=== PATIENT | female | born 1990 ===

== ENCOUNTER 2025-01-04 22:57 | Emergency (ER) | payer MEDICAID, SELFPAY ==
--- NOTE | 2025-01-04 | ECG_ITS ---
Test Reason : CHEST PAIN Blood Pressure : */* mmHG Vent. Rate : 82 BPM Atrial Rate : 82 BPM P-R Int : 154 ms QRS Dur : 70 ms QT Int : 392 ms P-R-T Axes : 36 -2 4 degrees QTcB Int : 457 ms Normal sinus rhythm Minimal voltage criteria for LVH, may be normal variant ( R in aVL ) Borderline ECG No previous ECGs available Referred By: Generic ED Physician Electronically Signed By: RORO WILLIAMSON
--- NOTE | ~2025-01-04 | XR_ITS ---
CLINICAL HISTORY: pain 1 view chest x-ray. Comparison: None provided. Findings: No consolidation, pneumothorax, or effusion. Heart size normal. Impression: 1. No radiographic evidence for an acute cardiopulmonary process. No focal pulmonary consolidation. This document has been electronically signed by: Peter Pickett MD on 01/05/2025 01:16:54
--- NOTE | ~2025-01-04 | CT_ITS ---
CLINICAL HISTORY: sob, pain CT angiography chest using contrast. 3-D postprocessing Comparison: CR - XR CHEST 1V - 01/05/25 00:14 EST Findings: Evaluation of the pulmonary arterial system is mildly limited by suboptimal contrast opacification No thoracic aorta aneurysm. Heart size is at the upper limits of normal given the low lung volumes. There is pulmonary hypoinflation with bronchovascular crowding. No focal pulmonary consolidation, pneumothorax, or pleural effusion. Visualized upper abdomen unremarkable. No acute fractures. Impression: 1. Mildly limited examination related to suboptimal contrast opacification of the pulmonary arterial system. No clear pulmonary embolism appreciated. 2. Pulmonary hypoinflation with bronchovascular crowding. No focal pulmonary consolidation, pneumothorax, or pleural effusion. This document has been electronically signed by: Peter Pickett MD on 01/05/2025 03:24:28
[2025-01-04 23:05] VITALS: BP 143/66; PULSE 99; RESP 14; TEMP 36.8; O2SAT 99; BMI 40.3
[2025-01-04 23:32] LABS: Hematocrit 35.3 % (37.0-47.0); Hemoglobin 12.0 g/dl (12.0-16.0); Imm Gran Abs Auto 0.02 X10*3/uL (0.00-0.03); Imm Gran Pct Auto 0.3 % (0.0-0.4); Lymphocytes Absolute Auto 2.2 X10*3/uL (1.2-4.9); MANUAL DIFF FLAG NO; Mean Corpuscular HGB Conc 34.0 g/dl (31.0-35.0); Mean Corpuscular Hemoglobin 28.1 pg (27.0-33.0); Mean Corpuscular Volume 82.7 fL (80.0-98.0); NRBC Abs Auto 0.000 X10*3/uL (0.0-0.012); NRBC Pct Auto 0.0 /100WBC (0.0-0.2); Platelet Count 237 X10*3/uL (160-400); Red Blood Count 4.27 X10*6/uL (4.20-5.50); White Blood Count 7.2 X10*3/uL (4.8-10.8)
[2025-01-04 23:47] LABS: Alanine Aminotransferase 20 U/L (0-31); Albumin Level 4.0 g/dL (3.5-5.0); Alkaline Phosphatase 92 U/L (39-117); Anion Gap 11 (12-20); Aspartate Amino Transferase 26 U/L (5-31); Blood Urea Nitrogen 11 mg/dL (9-16); Calcium 9.0 mg/dL (8.4-10.2); Carbon Dioxide 24 mmol/L (22-29); Chloride 110 mmol/L (96-108); Creatinine Clr Calc Pharmacy 107.3; Estimated Glomerular Filt Rate > 60; Potassium 3.5 mmol/L (3.3-5.1); Sodium 141 mmol/L (135-145); Total Protein 7.7 g/dL (6.5-8.0)
[2025-01-04 23:54] LABS: Troponin-I High Sensitivity 9.8 ng/L (<3.5-17.0)
--- NOTE | 2025-01-05 00:01 | ED_ITS ---
HPI - Chest Pain General Chief Complaint: Chest Pain Stated Complaint: Fever Body Aches Time Seen by Provider: 01/04/25 23:31 Source: patient Limitations: no limitations History of Present Illness ED Provider: Katelynn Manley PA-C HPI narrative: 34-year-old female with a history of morbid obesity, presents with chest pain x1 day. Pain over left anterior chest, that has pleuritic, worse with inspiration, also exacerbated with palpation of chest wall. The pain radiates to left upper extremity at times. Patient denies recent cough or cold symptoms, diaphoresis, nausea vomiting. Denies new heavy lifting, repetitive activity, or trauma, that preceded her symptoms. Patient also complains of ongoing dyspnea with the exertion for ?years?. Patient states she does develop pedal edema after being on her feet throughout the day, it is bilateral. Denies use of OCs, recent travel, recent surgery, unilateral calf pain or swelling. Related Data Previous Rx's ?Medication ?Instructions ?Recorded ketorolac 10 mg tablet 10 mg PO Q6H PRN pain #20 ta bs 01/05/25 Allergies Allergy/AdvReac Type Severity Reaction Status Date / Time No Known Allergies Allergy Verified 01/04/25 23:08 Review of Systems 2 Review of Systems: Yes all other systems are reviewed and are negative Constitutional: Constitutional: Denies fatigue and Denies fever(s) Cardiovascular: Cardiovascular: Reports chest pain, Denies leg edema, Denies palpitations, Denies dyspnea and Reports dyspnea on exertion Respiratory: Respiratory: Denies cough, Denies dyspnea, Reports dyspnea on exertion and Denies wheezing Gastrointestinal: Gastrointestinal: Denies abdominal pain, Denies nausea and Denies vomiting Endocrine: Endocrine: Denies fatigue and Denies palpitations Allergic/Immunologic: Allergic/Immunologic: Denies wheezing [facility] Past Medical History Attestation statement: The following information was validated with the patient. Physical Exam 2 Vital Signs: Vital Signs: Last Vital Signs Temp 97.9 F 01/05/25 03:50 Pulse 77 01/05/25 03:50 Resp 15 01/05/25 03:50 BP 113/75 01/05/25 03:50 Pulse Ox 99 01/05/25 03:50 O2 Del Method Room Air 01/05/25 03:50 BMI result Body Mass Index 40.3 Const: Other: Alert well-appearing Orientation/consciousness: patient oriented x3 Chest: Other: Pain elicited left anterior chest wall with palpation no deformity noted Resp: Other: Nonlabored respirations Cardio: Other: Normal peripheral perfusion, trace edema Skin: Other: Warm dry no rash Neuro: General: patient oriented x3, gait normal, no focal motor deficits and CN's II-XI intact bilaterally Psych: Other: Cooperative Medications Administered Discontinued Medications Generic Name Dose Route Start Last Admin Trade Name Laura PRN Reason Stop Dose Admin Iohexol 100 ml 01/05/25 01:44 01/05/25 01:45 Iohexol 350 Mg/Ml 100 Ml Infus..Btl IV 01/05/25 01:45 70 ml ONCE ONE Administration Ketorolac Tromethamine 15 mg 01/05/25 00:52 01/05/25 00:56 Ketorolac Tromethamine 15 Mg/Ml Vial IVPUSH 01/05/25 00:53 15 mg ONCE ONE Administration Medical Decision Making Medical Decision Making [facility] Narrative: 34-year-old female with a history of morbid obesity, presents with chest pain x1 day. Pain over left anterior chest, that has pleuritic, worse with inspiration, also exacerbated with palpation of chest wall. The pain radiates to left upper extremity at times. Patient denies recent cough or cold symptoms, diaphoresis, nausea vomiting. Denies new heavy lifting, repetitive activity, or trauma, that preceded her symptoms. Patient also complains of ongoing dyspnea with the exertion for ?years?. Denies use of OCs, recent travel, recent surgery, unilateral calf pain or swelling. Problem: Obesity History: Per patient I have considered the following differential diagnoses: ACS, new heart failure, PE, costochondritis, viral syndrome, pneumonia, chest wall strain Plan: ACS was considered, screening labs including cardiac enzyme and EKG with chest x-ray obtained. To note, the patient does not have any risk factors for coronary artery disease other than obesity. Thought about new heart failure, she has been having ongoing dyspnea with exertion, there is evidence of LVH per EKG, there is a tall R-wave in AVR, she could be developing heart failure, she also complains of pedal edema that develops after being on her feet throughout the day. Thought about costochondritis, there is some reproducibility of the discomfort, however she has not had concurrent viral syndrome. Giving Toradol for her chest wall pain. Also less likely to be pneumonia, she has not had any cough cold symptoms or fever. Lastly, I am considering PE, the patient is obese, she has no other no risk factors for PE, she was tachycardic on arrival, adding on a dimer. I have independently reviewed the following tests: Labs: No leukocytosis, not anemic, no electrolyte abnormality, not , troponin 9.8, dimer, 243 EKG: Normal sinus rhythm, potential criteria for LVH, no ischemic changes no ectopy QTC 457, rate of 82 Chest x-ray:Findings: No consolidation, pneumothorax, or effusion. Heart size normal. Impression: 1. No radiographic evidence for an acute cardiopulmonary process. No focal pulmonary consolidation. CT angio chest:Findings: Evaluation of the pulmonary arterial system is mildly limited by suboptimal contrast opacification No thoracic aorta aneurysm. Heart size is at the upper limits of normal given the low lung volumes. There is pulmonary hypoinflation with bronchovascular crowding. No focal pulmonary consolidation, pneumothorax, or pleural effusion. Visualized upper abdomen unremarkable. No acute fractures. Impression: 1. Mildly limited examination related to suboptimal contrast opacification of the pulmonary arterial system. No clear pulmonary embolism appreciated. 2. Pulmonary hypoinflation with bronchovascular crowding. No focal pulmonary consolidation, pneumothorax, or pleural effusion. Differential Diagnosis Differential Diagnoses: The differential diagnosis associated with the presentation includes See [facility] Admission/Observation Consideration of admission/observation: Escalation of care including admission/observation considered Not applicable Lab Data [facility] Lab Attestation statement: I reviewed the patient's lab results. 01/04/25 23:25 01/04/25 23:25 Labs: Lab Results 01/04/25 01/05/25 Range/Units 23:25 00:06 WBC 7.2 (4.8-10.8) X10*3/uL RBC 4.27 (4.20-5.50) X10*6/uL Hgb 12.0 (12.0-16.0) g/dl Hct 35.3 L (37.0-47.0) % MCV 82.7 (80.0-98.0) fL MCH 28.1 (27.0-33.0) pg MCHC 34.0 (31.0-35.0) g/dl RDW 12.7 (11.0-16.0) % Plt Count 237 (160-400) X10*3/uL MPV 9.9 (9.4-12.3) fL Immature Gran % (Auto) 0.3 (0.0-0.4) % Neut % (Auto) 59.5 (45-73) % Lymph % (Auto) 30.0 (20-40) % [place] % (Auto) 7.9 (2-11) % Eos % (Auto) 1.9 (0-4) % Baso % (Auto) 0.4 (0-2) % Lymph # (Auto) 2.2 (1.2-4.9) X10*3/uL [place] # (Auto) 0.6 (0.1-1.2) X10*3/uL Eos # (Auto) 0.1 (0.0-0.4) X10*3/uL Baso # (Auto) 0.0 (0.0-0.2) X10*3/uL Abs Immat Gran (auto) 0.02 (0.00-0.03) X10*3/uL Absolute Neuts (auto) 4.3 (2.0-8.3) x10*3/uL Absolute Nucleated RBC 0.000 (0.0-0.012) X10*3/uL Nucleated RBC % (auto) 0.0 (0.0-0.2) /100WBC D-Dimer High Sensitivty 243 NG/ML Sodium 141 (135-145) mmol/L Potassium 3.5 (3.3-5.1) mmol/L Chloride 110 H (96-108) mmol/L Carbon Dioxide 24 (22-29) mmol/L Anion Gap 11 L (12-20) BUN 11 (9-16) mg/dL Creatinine 0.74 (0.5-1.4) mg/dL Estim Creat Clear Calc 107.3 Estimated GFR > 60 Random Glucose 93 (60-115) mg/dL Calcium 9.0 (8.4-10.2) mg/dL Total Bilirubin 0.3 (0.0-1.0) mg/dL AST 26 (5-31) U/L ALT 20 (0-31) U/L Alkaline Phosphatase 92 (39-117) U/L Troponin I High Sens 9.8 (<3.5-17.0) ng/L Total Protein 7.7 (6.5-8.0) g/dL Albumin 4.0 (3.5-5.0) g/dL Beta HCG, Quant < 2 mIU/mL Influenza Type A (PCR) NEGATIVE (Negative) Influenza Type B (PCR) NEGATIVE (Negative) RSV RNA Qual (PCR) NEGATIVE (Negative) SARS-CoV-2 RNA (RT-PCR) NEGATIVE (Negative) Independent Interpretation I performed an independent interpretation of an: EKG Radiology Impression Discussion of test interpretation with radiology: I have reviewed the radiologist's reading. Discharge Plan Discharge Clinical Impression: Chest wall pain Patient Disposition: Home, Self-Care Instructions: Chest Wall Pain (ED) Additional Instructions: Your symptoms and exam are most consistent with chest wall pain. Use the ketorolac as needed for pain, take the medication with food. All of your screening labs including a cardiac enzymes were within normal limits. There were no concerning changes on the EKG. The chest x-ray was clear. The CT scan of your chest did not reveal a clot in your lungs. Given your ongoing shortness of breath with the exertion, you need to follow up with primary care to have a formal ultrasound of your heart called an ECHO. Prescriptions: New ketorolac 10 mg tablet 10 mg PO Q6H PRN (Reason: pain) Qty: 20 0RF Rx Instructions: maximum total duration of 5 days from all oral, intranasal, or parenteral formulations, patient had an IV dose of Toradol here in the emergency room Stand Alone Forms: Work/School Release Print Language: Italian
--- OUTSIDE RECORDS SUMMARY | 2025-01-05 00:04 | XMS_ITS | Encounter Summary ---
Author Organization [facility] Address [address] [place] [address] Care Team Providers Care Financial Services Specialist Name Role Phone Thao Otto Primary Care Provider [phone] Reason for Visit * Reason Onset Date Comments Other 05/11/2023 Encounter Details Date Type Department Care Team ([facility] st Contact Info) Description 05/11/2023 Telephone [facility] [address] [place] [address] Shantanu Ardon MD [address] [place] [address] Other Social History Tobacco Use Types Packs/Day Years Used Date Smoking Tobacco: Never Smokeless Tobacco: Never Alcohol Use Standard Drinks/Week Comments No 0 (1 standard drink = 0.6 oz pur e alcohol) Social Connection and Isolation Panel Answer Date Recorded Frequency of Communication with Friends and Fami ly Not on file 03/23/2021 Frequency of Social Gatherings with Friends and Family Not on file 03/23/2021 How often do you attend adventism or cheondoism serv ices? Never 03/23/2021 Do you belong to any clubs o r organizations such as adventism groups, unions, fraternal or athletic groups, or school groups? No 03/23/2021 How often do you attend meet ings of the clubs or organizations you belong to? Never 03/23/2021 Marital Status Not on file 03/23/2021 Overall Financial Resource Strain (CARDIA) Answe r Date Recorded How hard is it for you to pa y for the very basics like food, housing, medical care, and heating? Not very hard 03/23/2021 PHQ-2 Answer Date Recorded PHQ-2 Total Score 0 05/05/2023 Hunger Vital Sign Answer Date Recorded Within the past 12 months, y ou worried that your food would run out before you got the money to buy more. Never true 03/23/19 22 Within the past 12 months, t he food you bought just didn't last and you didn't have money to get more. Never true 03/23/2021 PRAPARE - Transportation Answer Date Re corded In the past 12 months, has l ack of transportation kept you from medical appointments or from getting medications? No 08/2021 In the past 12 months, has l ack of transportation kept you from meetings, work, or from getting things needed for daily living? No 03/23/2021 Housing Stability Answer Date Recorded Housing Stability I have a steady place to live 03/23/2021 Comments No Sex and Gender Information Value Date Recorded Sex Assigned at Female 01/02/2020 1:06 PM EST Legal Sex Female 1:37 PM EST Gender Identity Female 01/02/2020 1:06 PM EST Sexual Orientation Straight 01/02/2020 1: 06 PM EST documented as of this encounter Miscellaneous Notes * Telephone Encounter - Irina Burch - 05/11/2023 9:02 AM EDT Best Contact: Pt called in regarding abnormal bruising pt was seen for on the . Pt states the bruises came back and she's not sure what to do. Pt also is requesting results from recent labs. Requesting a call back documented in this encounter Plan of Treatment Upcoming Encounters Date Type Department Care Team (Latest Contact Info) Description 01/30/2025 11:15 AM EST Clinical Support Cancer Center at [address] [place] [address] [place] [address] Esteban Jacobs MD [address] [place] [address] [place] [phone] 01/30/2025 11:40 AM EST Office Visit Cancer Center at [facility] [address] [place] [address] Abigail Malik APRN [address] [place] [phone] Esteban Jacobs MD [address] [place] [address] 01/30/2025 11:45 AM EST Appointment [facility] [address] [place] [address] Esteban Jacobs MD [address] [place] [phone] 02/21/2025 8:30 AM EST Follow Up [address] [address] Thao Otto PA [address] [place] [phone] 03/08/2025 3:52 PM EST Hospital Encounter Perioperative Services EP [address] [place] [address] Amita Marie DO [address] [place] [phone] 03/08/2025 3:52 PM EST - 03/08/2025 5:52 PM EST Surgery Perioperative Services EP [address] [place] [address] Amita Marie DO [address] [place] [phone] Exam under anesthesia, hysteroscopic polypectomy, endometrial sampling, Mirena intrauterine device placement Scheduled Procedures Name Priority Associated Diagnoses Date/Ti me HYSTEROSCOPY, SURGICAL; W/ENDOMETRIAL BX &/OR POLYPECTOMY W/WO D&C Low Risk Abnormal uterine bleeding Uterine polyp Dysmenorrhea 03/08/2025 3:52 PM EST PELVIC EXAM UNDER ANESTHESIA Low Risk Abnormal uterine bleeding Uterine polyp Dysmenorrhea 03/08/2025 3:52 PM EST INSERTION, INTRAUTERINE DEVICE Low Risk Abnormal uterine bleeding Uterine polyp Dysmenorrhea 03/08/2025 3:52 PM EST documented as of this encounter Visit Diagnoses Not on filedocumented in this encounter Additional Health Concerns Assessment Noted Time PHQ-9 Depression Total Score: 0 05/05/19 11:27 AM EDT documented as of this encounter Care Teams Financial Services Specialist Relationship Specialty Start Date End Date Thao Otto PA [address] [place] [phone] PCP - General 05/17/24 documented as of this encounter
--- OUTSIDE RECORDS SUMMARY | 2025-01-05 00:04 | XMS_ITS | Encounter Summary ---
Author Organization [facility] Address [address] [place] [phone] Care Team Providers Care Dentist Attendant Name Role Phone Thao Otto Primary Care Provider [phone] Encounter Details Date Type Department Care Team (Late st Contact Info) Description 09/11/2024 Telephone [facility] at [facility] [address] [place] [address] Abigail Malik, SUPERVISOR [employer]IR [address] [place] [address] Social History Tobacco Use Types Packs/Day Years Used Date Smoking Tobacco: Never Smokeless Tobacco: Never Alcohol Use Standard Drinks/Week Comments Never 0 (1 standard drink = 0.6 oz pur e alcohol) Humiliation, Afraid, Rape, and Kick questionnair e Answer Date Recorded Within the last year, have y ou been afraid of your partner or ex-partner? No 05/17/2024 Within the last year, have y ou been humiliated or emotionally abused in other ways by your partner or ex-partner? No Within the last year, have y ou been kicked, hit, slapped, or otherwise physically hurt by your partner or ex-partner? No 05/17/2024 Within the last year, have y ou been raped or forced to have any kind of sexual activity by your partner or ex-partner? No 05/17/2024 Social Connection and Isolation Panel Answer Date Recorded In a typical week, how many times do you talk on the phone with family, friends, or neighbors? Three times a week 05/17/2024 How often do you get togethe r with friends or relatives? Three times a week 05/17/2024 How often do you attend chur ch or cheondoism services? Never 05/17/2024 Do you belong to any clubs o r organizations such as hoahaoism groups, unions, fraternal or athletic groups, or school groups? No 05/17/2024 How often do you attend meet ings of the clubs or organizations you belong to? Never 05/17/2024 Are you , , di vorced, , never , or living with a partner? 05/17/2024 Overall Financial Resource Strain (CARDIA) Answe r Date Recorded How hard is it for you to pa y for the very basics like food, housing, medical care, and heating? Not very hard 05/17/2024 PHQ-2 Answer Date Recorded PHQ-2 Total Score 2 08/16/2024 [facility] Occupat ional [facility] - Occupational Stress Questionnaire Answer Date Recorded Do you feel stress - tense, restless, nervous, or anxious, or unable to sleep at night because your mind is troubled all the time - these days? Only a little 05/17/2024 Exercise Vital Sign Answer Date Recorde d On average, how many days pe r week do you engage in moderate to strenuous exercise (like a brisk walk)? 5 days 05/17/2024 On average, how many minutes do you engage in exercise at this level? 150+ min 05/17/2024 Hunger Vital Sign Answer Date Recorded Within the past 12 months, y ou worried that your food would run out before you got the money to buy more. Never true 05/18/19 25 Within the past 12 months, t he food you bought just didn't last and you didn't have money to get more. Never true 05/17/2024 PRAPARE - Transportation Answer Date Re corded In the past 12 months, has l ack of transportation kept you from medical appointments or from getting medications? No 04/2024 In the past 12 months, has l ack of transportation kept you from meetings, work, or from getting things needed for daily living? No 05/17/2024 Housing Stability Answer Date Recorded What is your living situation today? I have a st [place] place to live 05/17/2024 Housing Stability Not on file 05/17/2024 Interpersonal Safety Answer Date Record ed Is there anyone in your life that is hurting or threatening you in anyway? 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 Not on file Not on file Not on file documented as of this encounter Miscellaneous Notes * Telephone Encounter - Aleida Palmer - 09/11/2024 11:13 AM EDT Pt called and would like to reschedule her Appt due to schedule conflict Pt can be reached at [phone] documented in this encounter Plan of Treatment Upcoming Encounters Date Type Department Care Team (Latest Contact Info) Description 01/30/2025 11:15 AM EST Clinical Support [place] [address] Esteban Jacobs MD [address] [place], [place] [phone] 01/30/2025 11:40 AM EST Office Visit Cancer Center at [address] [id number] Abigail Malik APRN [address] [place] [phone] Esteban Jacobs MD [address] [place] [phone] 01/30/2025 11:45 AM EST Appointment [facility] [address] [place], [place] [address] Esteban Jacobs MD [address] [facility] [place] [address] 02/21/2025 8:30 AM EST Follow Up [address] [address] Thao Otto PA [address] [place] [phone] 03/08/2025 3:52 PM EST Hospital Encounter Perioperative Services EP [address] [place] [address] Amita Marie, DO [address] [place] [phone] 03/08/2025 3:52 PM EST - 03/08/2025 5:52 PM EST Surgery Perioperative Services EP [address] [place] [address] Amita Marie, DO [address] [place] [phone] Exam under anesthesia, hysteroscopic polypectomy, endometrial sampling, Mirena intrauterine device placement Scheduled Procedures Name Priority Associated Diagnoses Date/Ti md HYSTEROSCOPY, SURGICAL; W/ENDOMETRIAL BX &/OR POLYPECTOMY W/WO [...] Time PHQ-9 Depression Total Score: 0 05/05/19 24 11:27 AM EDT documented as of this encounter Care Teams Dentist Attendant Relationship Specialty Start Date End Date Thao Otto PA [address] [place] [address] PCP - General 05/17/24 documented as of this encounter
--- OUTSIDE RECORDS SUMMARY | 2025-01-05 00:04 | XMS_ITS | Encounter Summary ---
Author Organization [facility] and [facility] Address [address] [place] [phone] Care Team Providers Care Comptometrist Name Role Phone Thao Otto Primary Care Provider [phone] Encounter Details Date Type Department Care Team (Late st Contact Info) Description 07/02/2016 Scanned Document [facility] at [address] [address] Mario Charlton MD [address] [phone] Social History Tobacco Use Types Packs/Day Years Used Date Smoking Tobacco: Never Smokeless Tobacco: Never Alcohol Use Standard Drinks/Week Comments No 0 (1 standard drink = 0.6 oz pur e alcohol) Comments No Sex and Gender Information Value Date Recorded Sex Assigned at Female 01/02/2020 1:06 PM EST Legal Sex Female 1:37 PM EST Gender Identity Female 01/02/2020 1:06 PM EST Sexual Orientation Straight 01/02/2020 1: 06 PM EST documented as of this encounter Plan of Treatment Upcoming Encounters Date Type Department Care Team (Latest Contact Info) Description 01/30/2025 11:15 AM EST Clinical Support Cancer Center at [address] [place], [place] [id number] Esteban Jacobs MD [address] [place] [address] [place] [phone] 01/30/2025 11:40 AM EST Office Visit [facility] Center at [facility] [address] [place] [address] Abigail Malik APRN [address] [place] [phone] Esteban Jacobs MD [address] [place] [phone] 01/30/2025 11:45 AM EST Appointment [facility] [address] [place] [address] Esteban Jacobs MD [address] [place] [phone] 02/21/2025 8:30 AM EST Follow Up [address] [address] Thao Otto PA [address] [place] [phone] 03/08/2025 3:52 PM EST Hospital Encounter Perioperative Services EP [address] [place] [address] Amita Marie DO [address] [place] [phone] 03/08/2025 3:52 PM EST - 03/08/2025 5:52 PM EST Surgery Perioperative Services EP [address] [place] [phone] Amita Marie DO [address] [place] [phone] Exam under anesthesia, hysteroscopic polypectomy, endometrial [...] filedocumented in this encounter Additional Health Concerns Infection Onset Date Last Indicated Resolved Time R/O Influenza 04/11/2019 04/11/2019 04/12/2019 12: 11 AM EST R/O COVID-19 11/15/2019 11/16/2019 11/16/2019 9:00 PM EDT COVID-19 12/24/2019 12/24/2019 01/03/2020 7:20 PM EST R/O Respiratory Virus 06/02/2021 06/02/20212021 1:52 AM EDT R/O COVID-19 06/02/2021 06/02/2021 06/02/2021 1:52 AM EDT COVID-19 06/02/2021 06/02/2021 06/12/2021 7:18 PM EDT R/O COVID-19 08/17/2021 08/17/2021 08/17/2021 1:38 AM EDT R/O COVID-19 08/20/2021 08/20/2021 08/20/2021 9:21 PM EDT R/O Respiratory Virus 12/12/2022 12/12/20222022 10:40 PM EDT R/O COVID-19 12/12/2022 12/12/2022 12/12/2022 10:4 0 PM EDT R/O Respiratory Virus 01/24/2023 01/24/20232022 7:19 AM EST R/O COVID-19 01/24/2023 01/24/2023 01/24/2023 7:19 AM EST RSV 01/24/2023 01/24/2023 01/27/2023 7:18 PM EST documented as of this encounter Care Teams Comptometrist Relationship Specialty Start Date End Date Thao Otto PA [address] [place] [phone] PCP - General 05/17/24 documented as of this encounter
--- OUTSIDE RECORDS SUMMARY | 2025-01-05 00:04 | XMS_ITS | Encounter Summary ---
Author Organization [facility] Address [address] [place] [address] Care Team Providers Care Account Leader Name Role Phone Thao Otto Primary Care Provider [phone] Reason for Visit * Reason Onset Date Comments Other 03/12/2024 Encounter Details Date Type Department Care Team ([facility] st Contact Info) Description 03/12/2024 Telephone [facility] [address] [place] [address] Shantanu Ardon MD [address] [place] [address] Other Social History Tobacco Use [...] file 03/23/2021 How often do you attend advent or scientology serv ices? Never 03/23/2021 Do you belong to any clubs o r organizations such as advent groups, unions, fraternal or athletic groups, or [...] the money to buy more. Never true 12/01/19 24 Within the past 12 months, t he food you bought just didn't last and you didn't have money to get more. Never true 12/01/2023 PRAPARE - Transportation Answer Date Re corded In the past 12 months, has l ack of transportation kept you from medical appointments or from getting medications? No 11/14 In the past 12 months, has l ack of transportation kept you from meetings, work, or from getting things needed for daily living? No 12/01/2023 Housing Stability Answer Date Recorded What is your living situation today? I have a [facility] place to live 12/01/2023 Housing Stability Not on file 12/01/2023 Comments No Sex and Gender Information Value Date Recorded Sex Assigned at Female 01/02/2020 1:06 PM EST Legal Sex Female 1:37 PM EST Gender Identity Female 01/02/2020 1:06 PM EST Sexual Orientation Straight 01/02/2020 1: 06 PM EST documented as of this encounter Miscellaneous Notes * Telephone Encounter - Kelly Dunlap LPN - 03/12/2024 1:58 PM EST Tc placed to pt about previous message. Informed her that she would need to be seen by a provider. Recommended pt to go to our [place] [facility] Pt acknowledged understanding CCM: 2 minutes 03/12/2024 Kelly Dunlap LPN * Telephone Encounter - Lalitha Chappell - 03/12/2024 1:00 PM EST Patient called in requesting to speak to pcp about ordering xray's for her right breast. Patient informed she has a ball on her right breast that is causing discomfort. Patient denied any other symptoms. Patient went to the ER and was advised to follow up with pcp but there was no soon appointments available. Call back: [phone] documented in this encounter Plan of Treatment Upcoming Encounters Date Type Department Care Team (Latest Contact Info) Description 01/30/2025 11:15 AM EST Clinical Support Cancer Center at [address] [address] Esteban Jacobs MD [address] [place] [phone] 01/30/2025 11:40 AM EST Office Visit Cancer Center at [address] [address] Abigail Malik APRN [address] [place] [phone] Esteban Jacobs MD [address] [place] [phone] 01/30/2025 11:45 AM EST Appointment [facility] [address] [phone] Esteban Jacobs MD [address] [place] [phone] 02/21/2025 8:[address] [facility] [address] [place] [phone] Thao Otto PA [address] [place] [phone] 03/08/2025 3:52 PM EST Hospital Encounter Perioperative Services EP [address] [place] [phone] Amita Marie DO [address] [place] [phone] 03/08/2025 3:52 PM EST - 03/08/2025 5:52 PM EST Surgery Perioperative Services EP [address] [place] [phone] Amita Marie DO [address] [place] [phone] Exam under anesthesia, hysteroscopic polypectomy, endometrial sampling, [...] documented as of this encounter Care Teams Account Leader Relationship Specialty Start Date End Date Thao Otto PA [address] [place] [phone] PCP - General 05/17/24 documented as of this encounter
--- OUTSIDE RECORDS SUMMARY | 2025-01-05 00:04 | XMS_ITS | Clinical Summary ---
Author Organization [address] Address [address] [place] [address] Care Team Providers Care Electro Mechanic Name Role Phone Thao Otto Primary Care Provider [phone] Allergies Active Allergy Reactions Criticality Noted Date Comments Environmental Allergies Itching Low 08/06/2020 Medications * This document contains information received from the source organization and may not represent a complete record from that organization. acetaminophen (TYLENOL) 325 mg tablet Take 2 tablets (650 mg total) by mouth every 6 (six) hours as needed for pain. 30 tablet 06/21/19 25 Active ibuprofen (ADVIL,MOTRIN) 600 mg tabletIndicati ons:Dysmenorrh ea Take 1 tablet (600 mg total) by mouth every 6 (six) hours as needed for pain. 60 tablet 10/25/19 25 Active propranoloL (INDERAL) 10 mg immediate release tablet PROPRANOLOL HCL 10 MG TABS 04/20/19 17 022 Discontinued Active Problems Problem Noted Date Diagnosed Date Vitamin B12 deficiency 09/28/2024 Iron deficiency anemia due to chronic blood loss 05/17/2024 Assessment & Plan (08/16/2024 9:07 AM EDT): - Managed with hematology Office Visit with Esteban Jacobs MD (05/30/2024) - Patient received iron infusion 06/19/2024 - Has f/u 09/14/2024 - Patient has not gone for her transvaginal US ordered by OBGYN due to work conflict - She reports she does not work until 3pm. Advised to schedule an appointment before 3pm. Patient agrees. Assessment & Plan (05/17/2024 9:23 AM EDT): - Given symptoms and poor adherence to iron supplements in past will sent for labs - Will discuss iron with constipation management pending labs Orders: Iron, TIBC and ferritin panel ([facility] LM[facility]) Routine adult health maintenance 05/16/2024 Assessment & Plan (05/17/2024 9:23 AM EDT): - Labs ordered Orders: Hemoglobin A1c Lipid panel Comprehensive metabolic panel TSH w/reflex to FT4 ([facility] LM[facility] Q [facility]) CBC and differential (Not generally recommended for screening except women) Abnormal bruising 05/05/2023 Assessment & Plan (05/07/2023 11:41 AM EDT): Ddx: thyroid disease, von willebrand disease, hemophila or thrombophilia/ factor V leiden, coagulopathy Family history of bleeding disorder 05/05/2023 Menorrhagia with regular cycle 05/05/2023 Assessment & Plan (05/17/2024 9:23 AM EDT): -States some improvement of menorrhagia would still like to have an US done - F/u with OBGYN Orders: US Non-OB Transvaginal Fertility testing 08/26/2021 Overview (08/26/2021): Jeanette Ramiro is a 30 y.o. presenting today for fertility consult s/p BTL with same-sex partner S/P appendectomy 08/20/2021 Assessment & Plan (08/21/2021 1:27 PM EDT): - patient s/p lap appendectomy, discharged 08/17/2021 - encourage walking - may continue with Tylenol use - stool softener prn and fluids - discussed that she may see bruising around lap sites, this is normal and color change will occur as it heals - follow-up 3 weeks Well woman exam with routine gynecological exam 04/01/2021 Overview (11/24/2021): Updated last 11/24/21: -Current BCM: None, trying to become via IVF, PNVs sent to pharmacy -Last PAP: Nxt pap due 2026 -Last STD screen: 2018 and was neg for G/C/T -HPV vaccine: None documented, [] offer at next visit Tubal ligation status 05/08/2020 Assessment & Plan (05/20/2020 7:40 AM EDT): Noted. History of recurrent UTIs 07/04/2017 Assessment & Plan (05/20/2020 9:08 AM EDT): Discussed causes. Discussed strategies to prevent as well as strategies for as- needed treatment at home. Discussed notifying PCP if more than twice monthly. Nitrofurantoin as needed and prophylactically. BMI 32.0-32.9,adult 01/29/2013 Assessment & Plan (05/20/2020 7:40 AM EDT): Discuss healthy weight ranges. Discuss limiting portion sizes to reduce weight. Discuss trying to reach exercise and activity goals of 20-30 minutes of moderate intensity exercise 3-5 times per week. Resolved Problems Problem Noted Date Diagnosed Date Resolved Date Fibroadenoma of breast, right 05/16/2024 08/16/2024 Assessment & Plan (05/17/2024 9:23 AM EDT): -Referral to breast center made, patient would like to pursue excision Orders: Breast Center ([facility]) Upper respiratory tract infection 08/20/2021 05/02/2023 Assessment & Plan (08/21/2021 1:27 PM EDT): - discussed with patient that symptoms can last up to 14 days - encouraged fluids and rest, tylenol as opposed to motrin given recent surgery - may continue to use Tessalon Perles, nasal spray, may want to try salt water gargles, tea with lemon and honey - encouraged walking around daily - informed patient that if symptoms do not improve, she develops a fever, worsening cough, headache or throat pain to please come in to be seen. Assessment & Plan (08/20/2021 12:08 PM EDT): Differential includes Covid-19, viral or bacterial sinusitis, allergic rhinitis, non-allergic rhinitis, influenza, acute bronchitis, EBV - Covid-19 AN PCR performed today. Presumptive isolation and transmission precautions reviewed. She remains on leave from work following laparoscopic appendectomy. - Recommend symptomatic management at this time: acetaminophen or ibuprofen as needed for pain, intranasal corticosteroids, guaifenesin with ample hydration, benzonatate for cough, elevate HOB - Seek further evaluation if symptoms do not continue to improve or new symptoms develop or worsen. Acute appendicitis 08/17/2021 Appendicitis, unspecified appendicitis type 08/17/2021 08/20/2021 COVID-19 virus infection 01/03/202007/2020 Abscess of thigh 02/22/2018 05/20/2020 Cervical lymphadenopathy 11/25/201707/2020 Hemorrhagic cyst of ovary 09/05/2017 Chest pain 07/04/2017 05/20/2020 GERD with esophagitis 07/04/20172020 Dental caries 04/19/2017 05/20/2020 Dental abscess 04/19/2017 05/20/2020 Hx of section 08/26/201605/20 Encounter for screening for infections with a predominantly sexual mode of transmission 04/19/2016 05/20/2020 Anxiety 04/19/2016 05/02/2023 Shoulder dislocation, right, subsequent encounter 06/24/2015 05/02/2023 Assessment & Plan (08/20/2021 9:35 PM EDT): - per chart review at right capsulolabral repair 05/21/2020 - discharged from PT 01/2021 Assessment & Plan (05/20/2020 7:40 AM EDT): Appears to have recurrent episodes. For orthopedic surgery tomorrow per chart review. Need for HPV vaccination 05/07/201507/2020 Overview (05/07/2015): Please check with patient to see if she has received HPV vaccine. If not please offer Costochondritis 06/07/2013 05/20/2020 Common migraine 06/07/2013 05/20/2020 Back strain 06/07/2013 05/20/2020 Encounters Date Type Department Care Team Description 12/31/2024 Telephone Cancer Center at [address] [address] Esteban Jacobs MD Appointment 12/04/2024 2:30 PM EDT Clinical Support [facility] at [address] [address] Esteban Jacobs MD Vitamin B12 deficiency (Primary Dx) 12/04/2024 2:00 PM EDT Office Visit Cancer Center at [address] [address] Abigail Malik APRN Iron deficiency anemia due to chronic blood loss (Primary Dx); Vitamin B12 deficiency 12/04/2024 1:19 PM EDT - 12/04/2024 11:59 PM EDT Hospital Encounter [facility] [address] [address] Abigail Malik APRN Iron deficiency anemia due to chronic blood loss; Vitamin B12 deficiency Discharge Disposition: Home or Self Care 12/04/2024 9:30 AM EDT Procedure visit [facility]AV[facility] EQUIPMENT OPERATOR APPRENTICE [address] [place], [place] [phone] Amita Marie DO Abnormal uterine bleeding (AUB) (Primary Dx); Dysmenorrhea 12/04/[address] [facility] at [address] [place] [phone] Amita Marie DO Appointment (spoke w/ pt to confirm DOS 03/08) 12/04/2024 Travel 11/06/2024 10:10 AM EDT Procedure visit [facility] HEAVY EQUIPMENT OPERATOR APPRENTICE [address], [place] [phone] Sera Davis APRN Menorrhagia with regular cycle (Primary Dx) 11/06/2024 Travel 10/31/2024 8:15 AM EDT Clinical Support [facility] at [address] [address] Abigail Malik, CUONG Vitamin B12 deficiency (Primary Dx) 10/26/2024 Telephone Cancer Center at [address] [address] Abigail Malik, CHARTER COORDINATOR Appointment 10/26/2024 Telephone [facility] [address] [place] [address] Abigail Malik, CHARTER COORDINATOR Appointment 10/24/2024 9:10 AM EDT Follow Up [facility] EQUIPMENT OPERATOR APPRENTICE [address] [place] [address] Temi Prado CNM Menorrhagia with regular cycle (Primary Dx); Dysmenorrhea 10/24/2024 Travel 10/23/2024 Results Follow-Up Cancer Center at [address] [place] [address] Abigail Malik, CUONG Gastric parietal cell antibody ([facility] LMW Q [facility]), Intrinsic factor blocking antibody 10/09/2024 8:15 AM EDT - 10/09/2024 11:59 PM EDT [facility] [address] [place] [address] Thao Otto PA Discharge Disposition: Home or Self Care 10/09/2024 Results Follow-Up [facility] [address] [place] [address] Thao Otto PA US Non-OB Transvaginal from Last 3 Months Immunizations Immunization Administration Dates Next Due Tdap 05/17/2024,03/21/2010 Family History Medical History Relation Name Comments Anemia Daughter Anemia Mother Blood Disorder Mother Clotting disorder Mother Breast cancer Neg Hx Ovarian cancer Neg Hx Relation Name Status Comments Daughter Alive Father Mother Social History Tobacco Use Types Packs/Day Years Used Date Smoking Tobacco: Never Smokeless Tobacco: Never Tobacco Cessation:Counseling Given: Not Answered Alcohol Use Standard Drinks/Week Comments Never 0 [...] often do you attend chur ch or denominational services? Never 05/17/2024 Do you belong to any clubs o r organizations such as restoration groups, unions, fraternal or athletic groups, or [...] Answer Date Recorded PHQ-2 Total Score 0 10/24/2024 [facility] [place] [facility] Occupat ional [facility] - Occupational Stress Questionnaire Answer Date Recorded [...] your living situation today? 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 Not on file Not on file Last Filed Vital Signs Vital Sign Reading Time Taken Comments Blood Pressure 125/89 12/04/2024 1:33 PM EDT Pulse 87 12/04/2024 1:33 PM EDT Temperature 36.9 C (98.5 F) 12/04/2024 1:33 PM EDT Respiratory Rate 20 12/04/2024 1:33 PM EDT Oxygen Saturation 98% 12/04/2024 1:33 PM EDT Inhaled Oxygen Concentration - - Weight 92.4 kg (203 lb 11.3 oz) 12/04/2024 1:33 PM EDT Height 152.4 cm (5') 12/04/2024 9:46 AM EDT Body Mass Index 39.78 12/04/2024 9:46 AM EDT Plan of Treatment Upcoming Encounters Date Type Department Care Team (Latest Contact Info) Description 01/30/2025 11:15 AM EST Clinical Support [facility] Center at [address] [address] Esteban Jcaobs MD [address] [place] [phone] 01/30/2025 11:40 AM EST Office Visit Cancer Center at [address] [address] Abigail Malik, CHARTER COORDINATOR [address] [place] [phone] Esteban Jacobs MD [address] [place] [phone] 01/30/2025 11:45 AM EST Appointment [facility] [address] [phone] Esteban Jacobs MD [address] [place] [phone] 02/21/2025 8:30 AM EST Follow Up [facility] [address] [place] [phone] Thao Otto PA [address] [place] [phone] 03/08/2025 3:52 PM EST Hospital Encounter Per[facility] EP [address] [place] [address] Amita Marie DO [address] [phone] 03/08/2025 3:52 PM EST - 03/08/2025 5:52 PM EST Surgery Perioperative Services EP [address] [place] [address] Amita Marie DO [address] [place] [phone] Exam under anesthesia, hysteroscopic polypectomy, endometrial sampling, [...] Uterine polyp Dysmenorrhea 03/08/2025 3:52 PM EST Health Maintenance Due Date Last Done Comments Influenza vaccine 09/14/2024 Covid-19 vaccine series ( season) 2024 Cervical cancer screening 04/01/20262021, 09/05/2017, 09/05/2017 Tetanus adult (Td q 10,TDAP once) 05/17/2034 05/17/2024, 03/21/2010 RSV Immunization (1 - 1-dose 75+ series) 12/21/2063 HIV screening Completed 08/06/2020, 06/29/2019 Hepatitis C screening Completed 08/06/2020 , 06/29/2019 Meningococcal B Vaccine Aged Out No l onger eligible based on patient's age to complete this topic Meningococcal Vaccine Aged Out No kendal ferny eligible based on patient's age to complete this topic Pneumococcal Vaccine (2 - 49 years) Aged Out No longer eligible b ased on patient's age to complete this topic Procedures Procedure Name Priority Date/Time Associated Diagnosis Comments FERRITIN Routine 12/04/2024 1:21 PM EDT Iron deficiency anemia due to chronic blood loss IRON AND TIBC Routine 12/04/2024 1:21 PM EDT Iron deficiency anemia due to chronic blood loss CBC WITHOUT DIFFERENTIAL Routine 12/04/2024 1:21 PM EDT Iron deficiency anemia due to chronic blood loss VITAMIN B12 Routine 12/04/2024 1:21 PM EDT Vitamin B12 deficiency IRON, TIBC AND FERRITIN PANEL ([facility] Q [facility]) Routine 12/04/2024 1:21 PM EDT Iron deficiency anemia due to chronic blood loss POCT URINE Routine 11/06/2024 10:35 AM EDT Menorrhagia with regular cycle US NON-OB TRANSVAGINAL Routine 10/09/2024 9:08 AM EDT Menorrhagia with regular cycle DE CYTOPAT,CER/VAG,THIN LAYER,MAN RES,INTER Routine 04/01/2021 5:47 PM EST Well woman exam with routine gynecological exam HIV 1/2 AG/AB, W/REFLEXES (Q) Routine 08/06/2020 11:47 AM EDT Screening for STD (sexually transmitted disease) HEPATITIS C AB W/RFL RNA, PCR W/RFL GENOTYPE, LIPA (Q) Routine 08/06/2020 11:47 AM EDT Screening for STD (sexually transmitted disease) from Last 3 Months or Most Recently Relevant to Health Maintenance Results * CBC without differential (12/04/2024 1:21 PM EDT) WBC 7.8 4.0 - 11.0 x1000/ L 12/04/2024 1:27 PM EDT [facility] RBC 4.39 4.00 - 6.00 M/ L 12/04/2024 1:27 PM EDT [facility] Hemoglobin 12.6 11.7 - 15.5 g/dL 12/04/2024 1:27 PM EDT [facility] Hematocrit 36.60 35.00 - 45.00 % 12/04/2024 1:27 PM EDT [facility] MCV 83.4 80.0 - 100.0 fL 12/04/2024 1:27 PM EDT [facility] MCH 28.7 27.0 - 33.0 pg 12/04/2024 1:27 PM EDT [facility] MCHC 34.4 31.0 - 36.0 g/dL 12/04/2024 1:27 PM EDT [facility] RDW-CV 12.5 11.0 - 15.0 % 12/04/2024 1:27 PM EDT [facility] Platelets 264 150 - 420 x1000/ L 12/04/2024 1:27 PM EDT [facility] MPV 9.7 8.0 - 12.0 fL 12/04/2024 1:27 PM EDT [facility] ANC (Abs Neutrophil Count) 5.03 2.00 - 7.60 x 1000/ L 12/04/2024 1:27 PM EDT [facility] Blood Venipuncture / Unknown 12/04/2024 1:21 PM EDT 12/04/2024 1:24 PM EDT Abigail Malik APRN LAB BLOOD ORDERABLES Final Result [facility] [address] [id number], [facility] [phone] * Iron and TIBC (12/04/2024 1:21 PM EDT) Iron 50 37 - 145 ug/dL 12/04/2024 1:45 PM EDT [facility] Comment:In the presence of h igh ferritin concentrations >1200 ng/mL, the assumption that serum iron is almost completely bound to transferrin is no longer valid. Therefore, such iron results should not be used to calculate Total Iron Binding Capacity (TIBC) or percent transferrin saturation (%SAT). Iron Saturation 17 15 - 50 % 1:45 PM EDT [facility] TIBC 299 250 - 450 ug/dL 12/04/2024 1:45 PM EDT [facility] Blood Venipuncture / Unknown 12/04/2024 1:21 PM EDT 12/04/2024 1:24 PM EDT Abigail Malik CHARTER COORDINATOR LAB BLOOD ORDERABLES Final Result Performing Organization Address [facility]/ZIP Co de Phone Number [address] [phone] * Ferritin (12/04/2024 1:21 PM EDT) Pathologist [facility] Ferritin 22 15 - 150 ng/mL 12/04/2024 1:45 PM EDT [facility] Blood Venipuncture / Unknown 12/04/2024 1:21 PM EDT 12/04/2024 1:24 PM EDT Abigail Malik APRN LAB BLOOD ORDERABLES Final Result Performing Organization Address [facility] Co de Phone Number [address] [phone] * Vitamin B12 (12/04/2024 1:21 PM EDT) [facility] Vitamin B12 353 232 - 1,245 pg/mL 12/04/2024 9:02 PM EDT [facility] Blood Venipuncture / Unknown 12/04/2024 1:21 PM EDT 12/04/2024 1:24 PM EDT Abigail Malik CHARTER COORDINATOR LAB BLOOD ORDERABLES Final Result [facility] DEPARTMENT OF LABORATORY MEDICINE [address] [place] [address] * POCT urine (11/06/2024 10:35 AM EDT) Pathologist [facility] Preg Test, Ur, POC Negative Negative [facility] Line in Control Window? (+ Control) Yes [facility] Background Clear? (- Control) Yes [facility] Kit Lot Number [id number] [facility] Expiration Date 03/08/2026 [facility] Urine URINE SPECIMEN / Unknown 11/06/2024 10:35 AM EDT Sera Davis CHARTER COORDINATOR POINT OF CARE TEST OR DERABLES Final Result [facility] [place], [place], [facility] * US Non-OB Transvaginal (10/09/2024 9:08 AM EDT) Anatomical Region Laterality Modality Pelvis, RCC BED AND BREAKFAST INNKEEPER, RCC Abdomen/Pelvis Ultrasound 10/09/2024 10:5 7 AM EDT Impressions 10/09/2024 2:43 PM EDT 1. Possible endometrial polyp. 2. Small uterine fibroid. Reported and signed by: Allison Verma MD [facility] Narrative 10/09/2024 2:43 PM EDT US NON-OB TRANSVAGINAL COMPARISON: 08/16/2021. INDICATION: Menorrhagia. TECHNIQUE: Barajas scale and color Doppler evaluation was performed using the transvaginal technique. FINDINGS: The uterus is anteverted and measures 8.6 x 5.4 x 6.5 cm in size. The myometrium is heterogeneous in echotexture. There is a 2.5 x 2.1 x 2.1 cm intramural fibroid within the uterine fundus on the left. The endometrium measures 14 mm in thickness (LMP 09/28/2024). There are no intrauterine fluid collections. Arterial flow was detected in the endometrial cavity on spectral Doppler. Trace fluid is noted within the endocervical canal. The right ovary measures 2.4 x 1.3 x 1.4 cm in size has a few small follicles. The left ovary measures 3.1 x 1.9 x 1.8 cm in size and has a few small follicles. A small amount of free fluid is noted within the cul-de-sac. Procedure Note Allison Verma MD - 10/09/2024 US NON-OB TRANSVAGINAL COMPARISON: 08/16/2021. INDICATION: Menorrhagia. TECHNIQUE: Barajas scale and color Doppler evaluation was performed using thetransvaginal technique. FINDINGS: The uterus is anteverted and measures 8.6 x 5.4 x 6.5 cm insize. The myometrium is heterogeneous in echotexture. There is a 2.5 x 2.1x 2.1 cm intramural fibroid within the uterine fundus on the left. Theendometrium measures 14 mm in thickness (LMP 09/28/2024). There are nointrauterine fluid collections. Arterial flow was detected in theendometrial cavity on spectral Doppler. Trace fluid is noted within theendocervical canal. The right ovary measures 2.4 x 1.3 x 1.4 cm in size has a few smallfollicles. The left ovary measures 3.1 x 1.9 x 1.8 cm in size and has a few smallfollicles. A small amount of free fluid is noted within the cul-de-sac. IMPRESSION: 1. Possible endometrial polyp. 2. Small uterine fibroid. Reported and signed by: Allison Verma MD [facility] us Thao [facility] US ORDERABLES Final Result * SurePath Pap, with HPV () (04/01/2021 5:47 PM EST) Cytology Provider Relations Consultant Cases CYTOLOGY REPORT Procedures/Addend a Attached Patient: JEANETTE HINSON MR #: [id number] Submitted by: Marcella Amaral APRN FINAL DIAGNOSIS SUREPATH PAP SMEAR: Primary Diagnosis: NEGATIVE FOR INTRAEPITHELIAL LESION OR MALIGNANCY. Additional Findings: ENDOCERVICAL/TRANS FORMATION ZONE COMPONENT PRESENT. TRICHOMONAS SPECIES PRESENT. CELLULAR FEATURES CONSISTENT WITH INFLAMMATION RELATED CHANGES. HIGH RISK HPV CO-TESTING HAS BEEN PERFORMED AND THE RESULT IS NEGATIVE. Specimen Adequacy: THIS SPECIMEN IS SATISFACTORY FOR EVALUATION. This specimen was manually screened with the assistance of the [employer] Imaging System. Recommendation: According to the current ASCCP guidelines for managing abnormal cervical cancer screening tests, women, with negative cytology (including those lacking an adequate endocervical/trans itional zone component) and negative HPV as well as a history of negative screens, should be followed according to the routine screening schedule such as 3 year screening with cytology alone or every 5 years with cytology and high risk HPV cotesting. (Abdias et al. J Low Genital Tract Disease. 2013; 17: S1) NOTE: Cervical/vaginal cytology is a screening tool for cervical carcinoma and its precursor lesions with an inherent false negative rate. It is an inaccurate test for detection of endometrial lesions and should not be used to evaluate suspected endometrial abnormalities. (The [employer]ter System, 2001) 04/07/2021 10:30 * Report Electronically Signed Out * This electronic signature indicates that the pathologist has personally reviewed the available gross and/or microscopic material and has based the diagnosis on that evaluation. Specimen(s) Received: SUREPATH PAP SMEAR Clinical History and Impression: {Not Available} Procedures/Addenda MOLECULAR DX: HR HPV SCREENING Pathologist: [facility] Status: Signed Out Ordered: 04/01/2021 Reported: 04/03/2021 12:36 Interpretation Specimen: SUREPATH PAP SMEAR BELOW CUTOFF FOR HIGH RISK HPV HPV types 16, 18, 31, 33, 35, 39, 45, 51, 52, 56, 58, 59, 66, and 68 DNA were either considered NEGATIVE, undetectable,or below the pre-set threshold. Note: Cut off ranges for HR HPV values have been determined by [employer] and found to be POSITIVE for OTHER HR HPV types and HPV type [address] Value is = 40.0 and for HPV type [address] value is = 40.5. Cut off ranges for HR HPV values have been determined by [employer] and found to be NEGATIVE for OTHER HR HPV types and HPV type [address] value is > 40.[address] value is > 40.5 for HPV type 16. This test was performed at [facility] Department of Pathology, [address] [place] [id number], CLIA# [id number] using the Felix abril 4800 HPV Test System and is only approved by the Food and Drug Administration (FDA) for use oncervicalspecimen s collected in Cytyc Preservcyt Solution (ThinPrep). When using ThinPrep liquid based samples for non-cervical specimens, SurePath liquid based samples, or formalin fixed paraffin embedded tissue, the performance characteristics have been determined by [facility]. Although testing on samples that are not cervical in origin, and/or in any other medium besides ThinPrep, has not been cleared or approved by the FDA, the FDA has determined that such clearance or approval is not necessary. [facility] Cervical Tracking Result Non-Tracking [facility] High Risk HPV Screening Non-Tracking [facility] Culture 04/01/2021 5:47 PM EST Comment:SUREPATH PAP SMEAR+ HPV Marcella Amaral CHARTER COORDINATOR PATHOLOGY/CYTOLOGY ORDERA BLES Final Result Performing Organization Address [facility]/ZIP Co de Phone Number [facility] Department of Pathology [address] [place] [address] [place] [address] * Hepatitis C AB w/rfl RNA, PCR w/rfl genotype, LIPA (Q) (08/06/2020 11:47 AM EDT) Hepatitis C Ab NON-REACTI VE NON-REACT [facility] Signal To Cut-Off 0.02 <1.00 [facility] Comment: HCV antibody was non-reactive. There is no laboratory evidence of HCV infection. In most cases, no further action is required. However, if recent HCV exposure is suspected, a test for HCV RNA (test code 27214) is suggested. For additional information, please refer to http://education.[employer]/faq/EJX054 (This link is being provided for informational/ educational purposes only.) Blood 08/06/2020 11:4 7 AM EDT 08/06/2020 11:48 AM EDT Narrative [facility] - 08/07/2020 8:54 AM EDT FASTING:NO FASTING: NO Resulting Agency Comment Performing Lab: Site ID: [id number] Name: [facility] Address: [address] [place] [address], [place] [address] Director: Juan Louis M.D. Shantanu Ardon MD LAB BLOOD ORDERABLES Fi nal Result Performing Organization Address City/[facility]/ZIP Co de Phone Number [facility] [address] [place] [phone] [place] [address] * HIV 1/2 ag/ab, w/reflexes (Q) (08/06/2020 11:47 AM EDT) HIV Ag/Ab, 4th Generation NON-REACT ITLAO NON-REACT ITALO [facility] Comment: HIV-1 antigen and HIV-1/HIV-2 antibodies were not detected. There is no laboratory evidence of HIV infection. PLEASE NOTE: This information has been disclosed to you from records whose confidentiality may be protected by state law. If your state requires such protection, then the state law prohibits you from making any further disclosure of the information without the specific written consent of the person to whom it pertains, or as otherwise permitted by law. A general authorization for the release of medical or other information is NOT sufficient for this purpose. For additional information please refer to http://education.KienVe/faq/IZM548 (This link is being provided for informational/ educational purposes only.) The performance of this assay has not been clinically validated in patients less than 2 years old. Blood 08/06/2020 11:4 7 AM EDT 08/06/2020 11:48 AM EDT Narrative [facility] - 08/07/2020 8:54 AM EDT FASTING:NO FASTING: NO Resulting Agency Comment Performing Lab: Site ID: [id number] Name: [facility] Address: [address] [place] [address], [facility] [place] [address] Director: Juan Louis M.D. Shantanu Ardon MD LAB BLOOD ORDERABLES Fi nal Result [facility] [address] from Last 3 Months or Most Recently Relevant to Health Maintenance Insurance [place] Advance Directives * Full ACLS (Latest Code Status on File) Date Activated Date Inactivated Comments 08/17/2021 1:48 AM 08/17/2021 4:40 PM Care Teams Electro Mechanic Relationship Specialty Start Date End Date Thao Otto PA [address] [place] [address] PCP - General 05/17/24
--- OUTSIDE RECORDS SUMMARY | 2025-01-05 00:04 | XMS_ITS | Encounter Summary ---
Author Organization [facility] Address [address] [place] [address] Care Team Providers Care Physiologist Name Role Phone Thao Otto Primary Care Provider [phone] Reason for Visit * Reason Onset Date Comments Appointment 12/31/2024 Encounter Details Date Type Department Care Team ([facility] st Contact Info) Description 12/31/2024 Telephone [facility] [address] [facility] [place] [address] Esteban Jacobs MD [address] [place] [address] [place] [address] Appointment Social History Tobacco Use Types Packs/Day Years [...] often do you attend chur ch or presybeterian services? 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 Ph. [phone] documented in this encounter Plan of Treatment Upcoming Encounters Date Type Department Care Team (Latest Contact Info) Description 01/30/2025 11:15 AM EST Clinical Support Cancer Center at [address] [address] Esteban Jacobs MD [address] [place] [phone] 01/30/2025 11:40 AM EST Office Visit Cancer Center at [address] [address] Abigail Malik DOCUMENT PREPARER [employer] [address] [facility] [place] [address] Esteban Jacobs MD [address] [facility] [place] [address] 01/30/2025 11:45 AM EST Appointment [facility] [address] [place] [address] Esteban Jacobs MD [address] [place] [address] 02/21/2025 8:30 AM EST Follow Up [address] [address] Thao Otto PA [address] [place] [phone] 03/08/2025 3:52 PM EST Hospital Encounter Perioperative Services EP [address] [place] [address] Amita Marie DO [address] [place] [phone] 03/08/2025 3:52 PM EST - 03/08/2025 5:52 PM EST Surgery Perioperative Services EP [address] [place] [phone] Amita Marie DO [address] [place] [address] Exam under anesthesia, hysteroscopic polypectomy, [...] documented as of this encounter Care Teams Physiologist Relationship Specialty Start Date End Date Thao Otto PA [address] [place] [address] PCP - General 05/17/24 documented as of this encounter
--- OUTSIDE RECORDS SUMMARY | 2025-01-05 00:04 | XMS_ITS | Encounter Summary ---
Author Organization [facility] Address [address] [place] [address] Care Team Providers Care Blending Machine Operator Name Role Phone Thao Otto Primary Care Provider [phone] Reason for Visit * Reason Onset Date Comments Results 05/14/2024 Encounter Details Date Type Department Care Team (Late st Contact Info) Description 05/14/2024 Telephone [facility] [address] [place] [address] Brianna Caicedo, GRADUATE RN [address] [place] [address] Results Social History Tobacco Use Types Packs/Day Years [...] often do you attend chur ch or baptist services? Never 05/17/2024 Do you belong to any clubs o r organizations such as uatsdin groups, unions, fraternal or athletic groups, or [...] Date Recorded PHQ-2 Total Score 0 05/05/2023 [facility] - Occupational Stress Questionnaire Answer Date [...] living situation today? I have a st kaity place to live 05/17/2024 Housing Stability Not on file 05/17/2024 Comments No Sex and Gender Information Value Date Recorded Sex Assigned at Female 01/02/2020 1:06 PM EST Legal Sex Female 1:37 PM EST Gender Identity Female 01/02/2020 1:06 PM EST Sexual Orientation Straight 01/02/2020 1: 06 PM EST documented as of this encounter Miscellaneous Notes * Telephone Encounter - Myriam Li LPN - 05/15/2024 10:08 AM EDT Called pt and let her know that she will have to establish care with pcp to get that referral. Pt understood and expressed no concerns at the moment CCM: 2 minutes 05/15/2024 Myriam Li LPN * Telephone Encounter - Ledy Miller - 05/14/2024 12:25 PM EDT Patient called in following up on results, best contact number is [phone]. documented in this encounter Plan of Treatment Upcoming Encounters Date Type Department Care Team (Latest Contact Info) Description 01/30/2025 11:15 AM EST Clinical [place] [address] Esteban Jacobs MD [address] [place] [phone] 01/30/2025 11:40 AM EST Office Visit Cancer Center at [address] [phone] Abigail Malik APRN [address] [place] [phone] Esteban Jacobs MD [address] [place] [address] [place] [address] 01/30/2025 11:45 AM EST Appointment [facility] [address] [place], [place] [address] Esteban Jacobs MD [address] [place] [address] 02/21/2025 8:30 AM EST Follow Up [address] [id number] Thao Otto PA [address] [place] [phone] 03/08/2025 3:52 PM EST Hospital Encounter Perioperative Services EP [address] [place] [address] Amita Marie, DO [address] [place] [address] 03/08/2025 3:52 PM EST - 03/08/2025 5:52 PM EST Surgery Perioperative Services EP [address] [place] [phone] Amita Marie, DO [address] [place] [address] Exam under anesthesia, hysteroscopic polypectomy, endometrial sampling, Mirena intrauterine device placement Scheduled Procedures Name Priority Associated Diagnoses Date/Ti mn HYSTEROSCOPY, SURGICAL; W/ENDOMETRIAL BX &/OR POLYPECTOMY W/WO [...] documented as of this encounter Care Teams Blending Machine Operator Relationship Specialty Start Date End Date Thao Otto PA [address] [place] [address] PCP - General 05/17/24 documented as of this encounter
[2025-01-05 00:16] LABS: Resp Syncy Virus RNA Qual PCR NEGATIVE (Negative); SARS COV2 PCR INHOUSE NEGATIVE (Negative)
[2025-01-05 00:21] LABS: D Dimer High Sensitivity 243 NG/ML
[2025-01-05] MEDS: iohexoL 350 MG/ML 100 ML INFUS..BTL IV (01:45)
[2025-01-05 03:50] VITALS: BP 113/75; PULSE 77; RESP 15; TEMP 36.6; O2SAT 99
[2025-01-05 04:13] VITALS: BP 113/75; PULSE 77; RESP 15; TEMP 36.6; O2SAT 99
== END 2025-01-05 04:17 | disposition home or self-care (01) ==
PROVIDERS: Physician Assistant Medical; Emergency Provider Emergency Medicine
DX: R07.89 Other chest pain (principal); R50.9 Fever, unspecified; M79.10 Myalgia, unspecified site; M79.622 Pain in left upper arm; Z03.818 Encounter for observation for suspected exposure to other biological agents ruled out
CPT/HCPCS: 36415; 71045; 71275; 80053; 84484; 84702; 85025; 85379; 87637; 93005; 96374; 99285; J1885; Q9967

== ENCOUNTER → 2025-01-04 23:14 | Outpatient (BNV) | payer MEDICAID, SELFPAY | PROVIDERS: Emergency Provider Emergency Medicine; Visit Provider Internal Medicine | DX: R07.9 Chest pain, unspecified (principal) | CPT/HCPCS: 93010 ==

== ENCOUNTER → 2025-01-04 23:31 | Outpatient (BNV) | payer MEDICAID, SELFPAY | PROVIDERS: Emergency Provider Emergency Medicine; Visit Provider Radiology Diagnostic Radiology | DX: R07.9 Chest pain, unspecified (principal) | CPT/HCPCS: 71045 ==

== ENCOUNTER → 2025-01-05 00:33 | Outpatient (BNV) | payer MEDICAID, SELFPAY | PROVIDERS: Emergency Provider Emergency Medicine; Visit Provider Radiology Diagnostic Radiology | DX: J98.09 Other diseases of bronchus, not elsewhere classified (principal) | CPT/HCPCS: 71275 ==